=== PATIENT | female | born 1965 | race Caucasian/White ===

== ENCOUNTER → 2024-09-19 09:00 | Outpatient (BNV) | payer OTHER, SELFPAY | PROVIDERS: Visit Provider Internal Medicine Cardiovascular Disease | DX: I49.3 Ventricular premature depolarization (principal) | CPT/HCPCS: 93244 ==

== ENCOUNTER → 2024-09-19 15:51 | Outpatient (REF) | payer OTHER, SELFPAY ==
--- OUTSIDE RECORDS SUMMARY | 2024-09-19 17:38 | XMS_ITS | Encounter Summary ---
Author Organization [facility] [place] [address] Care Team Providers Care Linux Vmware Administrator Name Role Phone Heydi Garcia APRN Primary Care Provider +1- [phone] Encounter Details Date Type Department Care Team (Late Contact Info) Description 09/13/2024 8:29 AM EST - 09/13/2024 11:59 PM EST Hospital Encounter Mammography at [address] [phone] Chely Manzanares MD [address] [address] Encounter for screening mammogram for malignant neoplasm of breast Discharge Disposition: Home Social History Tobacco Use Types Packs/Day Years Used Date Smoking Tobacco: Never Assessed Sex and Gender Information Value Date Recorded Sex Assigned at Not on file Gender Identity Not on file Sexual Orientation Not on file documented as of this encounter Plan of Treatment Upcoming Encounters Date Type Department Care Team ([facility] Contact Info) Description 12/07/2024 3:25 PM EDT Office Visit Primary Care at [address] [phone] Heydi Garcia APRN [address] [place] [address] Pending Results Name Type Priority Associated Diagnoses Date /Time Mammo Screening Cad and Gregg Left Imaging Routine Encounter for screening mammogram for malignant neoplasm of breast 09/13/2024 8:30 AM EST Scheduled Orders Name Type Priority Associated Diagnoses Orde r Schedule Mammo Screening Cad and Gregg Left Imaging Routine Encounter for screening mammogram for malignant neoplasm of breast 1 Occurrences starting 09/13/2024 until 09/13/2024 documented as of this encounter Visit Diagnoses Diagnosis Encounter for screening mammogram for malignant neoplasm of breast Other screening mammogram documented in this encounter Care Teams Linux Vmware Administrator Relationship Specialty Start Date End Date Heydi Garcia APRN [address] [place] [address] PCP - General Family Medicine 08/07/24 documented as of this encounter
--- OUTSIDE RECORDS SUMMARY | 2024-09-19 17:38 | XMS_ITS | Encounter Summary ---
Author Organization [facility] [place] [address] Care Team Providers Care Space Studies Faculty Member Name Role Phone Heydi Garcia APRN Primary Care Provider +1- [phone] Encounter Details Date Type Department Care Team (Latest Contact Info) Description 09/13/2024 Travel Social History Tobacco Use Types Packs/Day Years Used Date Smoking Tobacco: Never Assessed Sex and Gender Information Value Date Recorded Sex Assigned at Not on file Gender Identity Not on file Sexual Orientation Not on file documented as of this encounter Plan of Treatment Upcoming Encounters Date Type Department Care Team (Late st Contact Info) Description 12/07/2024 3:25 PM EDT Office Visit Primary Care at [address] [phone] Heydi Garcia APRN [address] [place] [address] documented as of this encounter Visit Diagnoses Not on filedocumented in this encounter Care Teams Space Studies Faculty Member Relationship Specialty Start Date End Date Heydi Garcia APRN [address] [place] [address] [phone] PCP - General Family Medicine 08/07/24 documented as of this encounter
--- OUTSIDE RECORDS SUMMARY | 2024-09-19 17:38 | XMS_ITS | Clinical Summary ---
Author Organization [facility] [place] [address] Care Team Providers Care Inventory Controller Name Role Phone Heydi Garcia APRN Primary Care Provider +1- [phone] Encounters Date Type Department Care Team Description 09/13/2024 8:29 AM EST - 09/13/2024 11:59 PM EST Hospital Encounter Mammography at [address] [phone] Chely Manzanares MD Encounter for screening mammogram for malignant neoplasm of breast Discharge Disposition: Home 09/13/2024 Transcribe Orders Cardiology at [address] [phone] Chely Manzanares MD Cardiac arrhythmia, unspecified cardiac arrhythmia type 09/13/2024 Travel 08/09/2024 Transcribe Orders eDH Incoming Referrals [phone] Larissa Drake APRN PVC (premature ventricular contraction) 08/08/2024 Transcribe Orders eDH Incoming Referrals [phone] Lisa Martinez PVC's (premature ventricular contractions) from Last 3 Months Social History Tobacco Use Types Packs/Day Years Used Date Smoking Tobacco: Never Assessed Sex and Gender Information Value Date Recorded Sex Assigned at Not on file Gender Identity Not on file Sexual Orientation Not on file Plan of Treatment Upcoming Encounters Date Type Department Care Team ([facility] st Contact Info) Description 12/07/2024 3:25 PM EDT Office Visit Primary Care at [address] [phone] Heydi Garcia APRN [address] [place] [address] Health Maintenance Due Date Last Done Comments CT Colonography 1965 Colonoscopy 1965 Colorectal Cancer Screening 1965 FIT DNA 1965 FIT 1965 Sigmoidoscopy (10 year) with FIT yearly 1965 Sigmoidoscopy 1965 HIV screen 01/01/1984 Hepatitis C Screening 01/01/1984 Hepatitis B vaccine (0-59 yrs) (1) 1984 Tetanus/Diphtheria/Pertussis Vaccines (1 - Tdap) 12/31 HPV test 01/01/1996 PAP Smear 01/01/1996 Breast Cancer Share Decision Needed 2005 Breast Cancer screening 2005 Pneumoccocal Vaccine: 50+ (1 of 1 - PCV) 01/01/2016 Zoster vaccine (1 of 2) 01/01/2016 Advance Directive 2020 Influenza (Flu) vaccine (1 o f 1 - Influenza standard series) 04/22/2024 Covid-19 Vaccine Completed 06/15/2024 Care Teams Inventory Controller Relationship Specialty Start Date End Date Heydi Garcia APRN [address] [place] [address] PCP - General Family Medicine 08/07/24
--- OUTSIDE RECORDS SUMMARY | 2024-09-19 17:38 | XMS_ITS | Encounter Summary ---
Author Organization [facility] [place] [address] Care Team Providers Care Dancing Master Name Role Phone Heydi Garcia APRN Primary Care Provider +1- [phone] Reason for Referral * Consultation (Routine) - Closed Specialty Diagnoses / Procedures Referred By Contac t Referred To Contact Cardiology Diagnoses Cardiac arrhythmia, unspecified cardiac arrhythmia type Chely Manzanares MD [address] [address] [facility] [address] [place] [phone] Referral ID Status Reason Start Date Expiration Date V isits Requested Visits Authorized [id number] Closed Consult, Test & Treat 09/13/2024 09/13/2025 1 1 Encounter Details Date Type Department Care Team (Late st Contact Info) Description 09/13/2024 Transcribe Orders Cardiology at [address] [phone] Chely Manzanares MD [address] [address] Cardiac arrhythmia, unspecified cardiac arrhythmia type Social History Tobacco Use Types Packs/Day Years [...] PM EDT Office Visit Primary Care at [place] [address] [place] [phone] Heydi Garcia APRN [address] [place] [address] Scheduled Referrals Name Type Priority Associated Diagnoses Orde r Schedule Referral to Cardiology Outpatient Referral Routine Cardiac arrhythmia, unspecified cardiac arrhythmia type Ordered: 09/13/2024 documented as of this encounter Visit Diagnoses Diagnosis Cardiac arrhythmia, unspecified cardiac arrhythmia type documented in this encounter Care Teams Dancing Master Relationship Specialty Start Date End Date Heydi Garcia APRN [address] [place] [address] PCP - General Family Medicine 08/07/24 documented as of this encounter
== END ==
LOC: HO.CARD 15:51
PROVIDERS: Visit Provider Family Medicine
DX: I49.3 Ventricular premature depolarization (principal)
CPT/HCPCS: 93005; 93242

== ENCOUNTER 2024-10-05 08:06 | Outpatient (AMB) | payer OTHER, SELFPAY ==
--- NOTE | 2024-10-05 08:09 | A.OFFVIS_ITS ---
Vital Signs 10/05/24 08:23 Height 5 ft 4 in Weight 149 lb 14.629 oz BMI 25.7 BP 110/70 Blood Pressure Location Lt brachial Position Sitting Pulse 68 Intake Visit Reasons: new patient abnormal holter Intake Note: New patient abnormal holter results with ekg c/o racing and palpitations Wind Turbine Installer Required: No Allergies No Known Allergies Allergy (Verified 10/05/24 08:25) Medication List - Last Reconciled 10/05/24 by Cliff Wang MD No Known Home Meds HPI Comments Details: Thank you for referring Lindsay in cardiology consultation today for management of cardiac arrhythmias. She is a pleasant 58-year-old woman who is extremely active. She does cross-country screening as well as hiking on a regular basis. She has not had any recent significant exertional symptoms of chest pain or shortness of breath. However couple months ago she was having oral surgery was told at that time that she was having PVCs. It took her some time to get a Holter monitor requested and done which showed frequent PVCs with a burden of about 15% with some runs of nonsustained ventricular tachycardia which led to this consultation today. Patient says after being told that she was PVC she has been noticing some fluttering in his chest although she is not very symptomatic with it. She denies any life limitations related to it. She was a little anxious. She says last year and half has been stressful given multiple issues in his personal life. However currently she has been feeling okay. She is currently not on any medications. She has never had any prior significant cardiovascular issues and denies any prior history of hypertension, diabetes, hyperlipidemia. She has no family history of cardiac arrhythmias or sudden cardiac that. FORMERLY [facility], [facility]–1983 Surgical History Hx of oral surgery Hx of knee surgery Family History Father Cancer Mother No problems noted. Review of Systems Const Denies chills, Denies daytime sleepiness, Denies fatigue, Denies fever(s), Denies frequent falls, Denies poor appetite, Denies snoring, Denies stops breathing during sleep, Denies weakness, Denies weight gain and Denies weight loss Eyes Denies loss of vision ENT Denies dizziness and Denies hearing loss Card Denies chest pain, Denies claudication, Denies leg edema, Denies lig htheadedness, Reports palpitations, Denies dyspnea, Denies dyspnea on exertion and Denies orthopnea Resp Denies cough, Denies excessive phlegm production, Denies dyspnea, Denies dyspnea on exertion, Denies snoring and Denies wheezing GI Denies abdominal pain, Denies hematochezia, Denies change in bowel habits, Denies nausea and Denies vomiting Denies urinary frequency and Denies dysuria Musc Denies arthralgias, Denies muscle weakness, Denies numbness and Denies other (frequent falls) Skin/Breast Denies nail changes and Denies rash Neuro Denies Abnormal speech present, Denies dizziness, Denies frequent falls, Denies loss of vision, Denies memory loss, Denies numbness and Denies weakness Psych Denies depression and Denies memory loss Endo Denies fatigue and Reports palpitations Rubin/Lymph Reports easy bruising and Reports other (anemia) Aller/Immun Denies wheezing Physical Exam Vital Signs: Last Vital Signs Pulse 68 10/05/24 08:23 BP 110/70 10/05/24 08:23 BMI result Body Mass Index 25.7 Const General: cooperative, comfortable, no acute distress, well developed, alert, awake, Physically active and well groomed Nutritional Appearance: average body habitus and well nourished Orientation/consciousness: patient oriented x3 Limitations: no limitations HEENT Head: Yes normocephalic and Yes atraumatic Neck Neck: Yes trachea midline, Yes supple and Yes no JVD Resp Effort & Inspection: normal respiratory effort Auscultation: clear to auscultation bilaterally Cardio Jugular venous distension: no JVD Palpation: normal PMI Rate: regular rate Rhythm: regular rhythm Heart sounds: S1 normal heart sound present, S2 normal heart sound present, no click, no gallops, no murmurs and no rubs GI Auscultation: normal bowel sounds Skin General skin exam: no rashes or lesions noted Neuro General: patient oriented x3 and no focal motor deficits Speech: No Abnormal speech present Extrem General: Yes no clubbing, cyanosis or edema Psych Appearance: grossly normal Office Procedures EKG Details: EKG shows normal sinus rhythm with occasional PVCs with possible left atrial enlargement otherwise no evidence of QT prolongation pre-excitation. 46496-[id number], Complete Assessment & Plan Assessment & Plan (1) PVC (premature ventricular contraction): Code(s): I49.3 - Ventricular premature depolarization Category: Medical Plan: Frequent PVCs including nonsustained ventricular tachycardia in this middle-aged woman without any obvious signs of cardiac disease or cardiovascular risk factors. She is in excellent cardiovascular shape as well and is very active. She does feel symptoms of fluttering but these are not life-limiting at this point time. I have discussed about pathophysiology of PVCs and management plan. Need to rule out underlying structural heart issues and will suggest her to have an echocardiogram as well as exercise stress test to rule out cardiomyo kristina process well as any other structural abnormality as well as myocardial ischemia. Given the frequency of PVCs discussed that this can potentially lead to cardiomyopathy process and will treat her with Toprol 50 mg daily. Follow-up Holter monitor in couple weeks to assess response. If there any significant structural heart issues will need to be addressed if not and she continues to have persistent frequent PVCs will need further cardiac imaging including cardiac MRI. This was discussed with her. Management of PVCs were discussed. We discussed about avoiding stimulants and also stress mitigation strategies. She understands and agrees. Follow up in the clinic in 4-6 weeks time after testing and see response to medical therapy. Thank you for allowing me to partake in his care Orders: Orders CA echo transthoracic complete Today I49.3 - Ventricular premature depolariz ation ECG 3 day holter monitor 4 Weeks I49.3 - Ventricular premature depolarization CA stress test Today I49.3 - Ventricular premature depolarization Medications: New metoprolol succinate ER (Toprol XL) 50 mg PO DAILY 30 tabs 5RF Coding Level of Care Code New Pt Level 4 (77812) Complex EM visit Add On G2211 Diagnoses PVC (premature ventricular contraction) I49.3 CPT Codes EKG - CPT: 87903-Zyvhujerexrgfbcpd, Complete ([id number])
--- OUTSIDE RECORDS SUMMARY | 2024-10-05 08:09 | XMS_ITS | Clinical Summary ---
Author Organization [facility] [place] [address] Care Team Providers Care University Relations Vice President Name Role Phone Heydi Garcia APRN Primary Care Provider +1- [phone] Encounters Date Type Department Care Team Description 09/21/2024 Abstract Primary Care at [address] [phone] Heydi Garcia APRN 09/20/2024 Telephone Primary Care at [address] [phone] Tray Rodriges [facility] Care 09/13/2024 8:29 AM EST - 09/13/2024 11:59 PM [facility] Hospital Encounter Mammography at [address] [phone] Chely Manzanares MD Encounter for screening mammogram for malignant neoplasm of breast Discharge Disposition: Home 09/13/2024 Transcribe Orders Cardiology at [address] [phone] Chely Manzanares MD Cardiac arrhythmia, unspecified cardiac arrhythmia type 09/13/2024 Travel 08/09/2024 Transcribe Orders eDH Incoming Referrals [phone] Larissa Darke APRN PVC (premature ventricular contraction) 08/08/2024 Transcribe Orders eDH Incoming Referrals [phone] Lisa Martinez PVC's (premature ventricular contractions) from Last 3 Months Immunizations Name Administration Dates Next Due Covid-19 Bivalent (Moderna S pikevax) 6mo+ (Age based Dosage) (4870-4442) 05/28/2022 Hepatitis B Pediatric/Adoles cant (Engerix-B, Recombivax) 12/13/2022,11/15/2022 Tdap (Adacel, Boostrix) 07/02/2021 Social History Tobacco Use Types Packs/Day Years Used Date Smoking Tobacco: Never Assessed Sex and Gender Information Value Date Recorded Sex Assigned at Not on file Gender Identity Not on file Sexual Orientation Not on file Plan of Treatment Upcoming Encounters Date Type Department Care Team ([facility] Contact Info) Description 12/07/2024 3:25 PM EDT Office Visit Primary Care at [address] [phone] Heydi Garcia, CHERIE [address] [place] [address] MEDICINE [place], [place] [phone] Health Maintenance Due Date Last Done Comments CT Colonography 1965 Colonoscopy 1965 Colorectal Cancer Screening 1965 FIT DNA 1965 FIT 1965 Sigmoidoscopy (10 year) with FIT yearly 1965 Sigmoidoscopy 1965 Hepatitis C Screening 01/01/1984 HPV test 01/01/1996 Breast Cancer Share Decision Needed 2005 Pneumoccocal Vaccine: 50+ (1 of 1 - PCV) 01/01/2016 Zoster vaccine (1 of 2) 01/01/2016 Advance Directive 2020 Hepatitis B vaccine (0-59 yrs) (3) 05/18/20232022, 11/15/2022 Influenza (Flu) vaccine (1 o f 1 - Influenza standard series) 04/22/2024 Breast Cancer screening 09/13/2026 09/13/2024 PAP Smear 01/29/2028 01/28/2023, 06/0 08/2021, 01/09/2021 Tetanus/Diphtheria/Pertussis Vaccines (2 - Td or Tdap) 07/02/2031 07/02/2021 HIV screen Completed 09/27/2008 Covid-19 Vaccine Completed 06/15/2024, 05/28/2022 Procedures Procedure Name Priority Date/Time Associated Diagnosis Comments MAMMO SCREENING CAD AND GREGG LEFT Routine 09/13/2024 8:40 AM EST Encounter for screening mammogram for malignant neoplasm of breast EXTERNAL PAP SMEAR RESULT PANEL Routine 01/28/2023 EXTERNAL INFECTIOUS DISEASE LAB RESULTS Routine 09/27/2008 from Last 3 Months or Most Recently Relevant to Health Maintenance Results * Mammo Screening Cad and Gregg Left (09/13/2024 8:40 AM EST) WORKSTATION ID [id number] RAD Anatomical Region Laterality Modality Breast Left Mammography Impressions 09/21/2024 3:33 PM EST No mammographic evidence of malignancy. RECOMMENDATION: Recommend routine annual screening. A result letter has been sent to this patient by [facility]. BI-RADS Category 2: Benign * Regular screening mammograms starting at age 40 reduces the risk of from breast cancer. * All screening tests have both risks and benefits. These risks and benefits should be assessed for each individual patient through discussion with their provider to determine their preferred breast cancer screening schedule. * Women should report any breast changes to a health care provider right away. * Some women, because of their family history, a genetic tendency, or other factors, should be screened with annual breast MRI as well as with mammograms. (The number of women who fall into this category is very small). Patients and health care providers should discuss the history of each patient to decide if earlier screening and/or breast MRI are appropriate. * Screening should continue as long as a woman is in good health and is expected to live 10 years or longer. * Screening mammography may not detect 10-15% of breast cancers. Thank you for letting us participate in the care of this patient. ??If you are a health care provider and have any questions regarding this report, please contact the number below. ??For patients who have questions please contact the health emergency care tech that requested your imaging first. ? Electronically signed by: JB LEACH MD, [facility] ([phone]), at 09/21/2024 3:[address], [place] ??[address] Narrative 09/21/2024 3:33 PM EST EXAMINATION: MAMMO SCREENING CAD AND GREGG LEFT CLINICAL HISTORY: Diagnostic mammogram. TECHNIQUE: CC and MLO views were obtained of left breast. 3- D tomosynthesis images were also obtained. Computer aided detection was used. Additional views of the left ??breast were obtained utilizing spot compression and/or spot magnification in orthogonal projections. COMPARISON: 07/15/2023 and 07/13/2022 FINDINGS: The breasts are heterogeneously dense, which may obscure small masses. There are no suspicious microcalcifications, masses, or areas of distortion. There is no suspicious change compared with prior images. Chely Manzanares MD IMG MAMMO ORDERABLES * Pap Smear External Result Panel (01/28/2023) External PAP Smear NILM 01/28/2023 Historical Provider EXTERNAL LAB HEMA DEJESUS * External Infectious Disease Lab Results (09/27/2008) Hep B Surface Ag - External NEGATIVE HIV-1/2 Ab /Ag - External NON-REACTIVE 09/27/2008 Historical Provider EXTERNAL LAB HEMA DEJESUS from Last 3 Months or Most Recently Relevant to Health Maintenance Care Teams University Relations Vice President Relationship Specialty Start Date End Date Heydi Garcia APRN [address] [place] [address] PCP - General Family Medicine 08/07/24
--- OUTSIDE RECORDS SUMMARY | 2024-10-05 08:09 | XMS_ITS | Encounter Summary ---
Author Organization [facility] [place] [address] Care Team Providers Care Copier Operator Name Role Phone Heydi Garcia APRN Primary Care Provider +1- [phone] Encounter Details Date Type Department Care Team [...] PM EDT Office Visit Primary Care at [address] [phone] Heydi Garcia APRN [address] [place] [address] documented as of this encounter Visit Diagnoses Not on filedocumented in this encounter Care Teams Copier Operator Relationship Specialty Start Date End Date Heydi Garcia APRN [address] [place] [id number] PCP - General Family Medicine 08/07/24 documented as of this encounter
--- OUTSIDE RECORDS SUMMARY | 2024-10-05 08:09 | XMS_ITS | Encounter Summary ---
Author Organization [facility] [place] [address] Care Team Providers Care Floor Scraper Name Role Phone Heydi Garcia APRN Primary Care Provider +1- [phone] Encounter Details Date Type Department Care Team (Late st Contact Info) Description 09/21/2024 Abstract Primary Care at [address] [phone] Heydi Garcia APRN [address] [place] [address] Social History Tobacco Use Types Packs/Day Years [...] PM EDT Office Visit Primary Care at [address] [phone] Heydi Garcia APRN [address] [place] [address] documented as of this encounter Procedures Procedure Name Priority Date/Time Associated Diagnosis Comments EXTERNAL PAP SMEAR RESULT PANEL Routine 01/28/2023 EXTERNAL PAP SMEAR RESULT PANEL Routine 01/20/2022 EXTERNAL PAP SMEAR RESULT PANEL Routine 01/09/2021 EXTERNAL INFECTIOUS DISEASE LAB RESULTS Routine 09/27/2008 documented in this encounter Results * Pap Smear External Result Panel (01/28/2023) External PAP Smear NILM 01/28/2023 Historical Provider EXTERNAL LAB ORDMaria E DEJESUS * Pap Smear External Result Panel (01/20/2022) External PAP Smear NILM 01/20/2022 Historical Provider EXTERNAL LAB HEMA DEJESUS * Pap Smear External Result Panel (01/09/2021) External PAP Smear NILM 01/09/2021 Historical Provider EXTERNAL LAB HEMA DEJESUS * External Infectious Disease Lab Results (09/27/2008) Hep B Surface Ag - External NEGATIVE HIV-1/2 Ab /Ag - External NON-REACTIVE 09/27/2008 Historical Provider MD MARTHA DEJESUS documented in this encounter Visit Diagnoses Not on filedocumented in this encounter Care Teams Floor Scraper Relationship Specialty Start Date End Date Heydi Garcia APRN [address] [place] [address] PCP - General Family Medicine 08/07/24 documented as of this encounter
--- OUTSIDE RECORDS SUMMARY | 2024-10-05 08:09 | XMS_ITS | Encounter Summary ---
Author Organization [facility] [place] [address] Care Team Providers Care Oracle Ebs Developer Name Role Phone Heydi Garcia APRN Primary Care Provider +1- [phone] Reason for Visit * Reason Onset Date Comments Establish Care 09/20/2024 Encounter Details Date Type Department Care Team (Late st Contact Info) Description 09/20/2024 Telephone Primary Care at [address] [phone] Tray Rodriges Establish Care Social History Tobacco Use Types Packs/Day Years Used Date Smoking Tobacco: Never Assessed Sex and Gender Information Value Date Recorded Sex Assigned at Not on file Gender Identity Not on file Sexual Orientation Not on file documented as of this encounter Miscellaneous Notes * Telephone Encounter - Gisela Ya - 09/21/2024 8:19 AM EST DUE FOR ALL GAPS * Telephone Encounter - Tray Rodriges - 09/20/2024 12:20 PM EST Records have been received NPV has been scheduled documented in this encounter Plan of Treatment Upcoming Encounters Date Type Department Care Team (Late st Contact Info) Description 12/07/2024 3:25 PM EDT Office Visit Primary Care at [address] [phone] Heydi Garcia APRN [address] [place] [address] documented as of this encounter Visit Diagnoses Not on filedocumented in this encounter Care Teams Oracle Ebs Developer Relationship Specialty Start Date End Date Heydi Garcia APRN [address] [place] [address] PCP - General Family Medicine 08/07/24 documented as of this encounter
--- OUTSIDE RECORDS SUMMARY | 2024-10-05 08:09 | XMS_ITS | Encounter Summary ---
Author Organization [facility] [place] [address] Care Team Providers Care Label Pinker Name Role Phone Heydi Garcia APRN Primary Care Provider +1- [phone] Reason for Referral * Consultation (Routine) - Closed Specialty Diagnoses / Procedures Referred By Contac t Referred To Contact Cardiology Diagnoses Cardiac arrhythmia, unspecified cardiac arrhythmia type Chely Manzanares MD [address] [address] [facility] Cardiology [address] [place] [phone] Referral ID Status Reason Start Date Expiration Date V isits Requested Visits Authorized [id number] Closed Consult, Test & Treat 09/13/2024 09/13/2025 1 1 Encounter Details Date Type Department Care Team (Late st Contact Info) Description 09/13/2024 Transcribe Orders Cardiology at [address] [phone] Chely Manzanares MD [address] [address] Cardiac arrhythmia, unspecified cardiac arrhythmia type Social [...] PM EDT Office Visit Primary Care at [place] [address] [place] [phone] Heydi Garcia APRN [address] [place] [address] Scheduled Referrals Name Type Priority Associated Diagnoses Orde r Schedule Referral to Cardiology Outpatient Referral Routine Cardiac arrhythmia, unspecified cardiac arrhythmia type Ordered: 09/13/2024 documented as of this encounter Visit Diagnoses Diagnosis Cardiac arrhythmia, unspecified cardiac arrhythmia type documented in this encounter Care Teams Label Pinker Relationship Specialty Start Date End Date Heydi Garcia APRN [address] [place] [id number] PCP - General Family Medicine 08/07/24 documented as of this encounter
--- OUTSIDE RECORDS SUMMARY | 2024-10-05 08:09 | XMS_ITS | Encounter Summary ---
Author Organization [facility] [place] [address] Care Team Providers Care Lead Handler Name Role Phone Heydi Garcia APRN Primary Care Provider +1- [phone] Encounter Details Date Type Department Care Team (Late Contact Info) Description 09/13/2024 8:29 AM EST - 09/13/2024 11:59 PM EST Hospital Encounter Mammography at [address] [phone] Chely Manzanares MD [address] [address] Encounter for screening mammogram for malignant neoplasm [...] Encounters Date Type Department Care Team (Late Contact Info) Description 12/07/2024 3:25 PM EDT Office Visit Primary Care at [address] [phone] Heydi Garcia APRN [address] [place] [address] documented as of this encounter Procedures Procedure Name Priority Date/Time Associated Diagnosis Comments MAMMO SCREENING CAD AND GREGG LEFT Routine 09/13/2024 8:40 AM EST Encounter for screening mammogram for malignant neoplasm of breast documented in this encounter Results * Mammo Screening Cad and Gregg Left (09/13/2024 8:40 AM EST) WORKSTATION ID [id number] RAD Anatomical Region Laterality Modality Breast Left [...] who have questions please contact the health resident care technician that requested your imaging first. ? [address] ??[address] Narrative 09/21/2024 3:33 PM EST EXAMINATION: MAMMO [...] images. Chely Manzanares MD IMG MAMMO ORDERABLES documented in this encounter Visit Diagnoses Diagnosis Encounter for screening mammogram for malignant neoplasm of breast Other screening mammogram documented in this encounter Care Teams Lead Handler Relationship Specialty Start Date End Date Heydi Garcia APRN [address] [place] [id number] PCP - General Family Medicine 08/07/24 documented as of this encounter
[2024-10-05 08:23] VITALS: BP 110/70; PULSE 68; BMI 25.7
== END 2024-10-05 08:47 | disposition home or self-care (01) ==
PROVIDERS: PCP Family Medicine; Visit Provider Internal Medicine Cardiovascular Disease
DX: I49.3 Ventricular premature depolarization (principal)
CPT/HCPCS: 93010; 99214

== ENCOUNTER → 2024-10-05 08:06 | Outpatient (BNVA) | payer OTHER, SELFPAY | PROVIDERS: Visit Provider Internal Medicine Cardiovascular Disease | DX: I49.3 Ventricular premature depolarization (principal) | CPT/HCPCS: 93005 ==

== ENCOUNTER → 2024-10-11 09:27 | Outpatient (REF) | payer OTHER, SELFPAY ==
--- NOTE | 2024-10-11 09:34 | CA_ITS ---
Acquisition Time: 2024-10-11 09:39:38 Total Exercise Time: 00:06:22 Test Indications: ABN HOLTER Medications: SEE H&P Protocol: JB Max HR: 142 BPM 87% of Pred: 162 BPM Max BP: 170/80 mmHG Max Work Load: 7.5 METS Exercise Stress Tets with exercise 6 mins 22 secs of Jb Protocol, achieving 85% MPHR, with reports of mild dizziness that resolved quickly in recovery, with frequent isolated PVCs more during resting, frequent ventricular couplets in the first 3 min of recovery- no symptoms, with normotensive response to exercise. With borderline EKG changes inferiroly and in V4-V6. ST segments improved gradually. Will order stress echo to further evaluate this. Test reviewed with Dr. Wang. Referred By: Cliff Wang Electronically Signed By: Shree Hsu
--- OUTSIDE RECORDS SUMMARY | 2024-10-11 10:15 | XMS_ITS | Encounter Summary ---
Author Organization [facility] [place] [address] Care Team Providers Care Copying Machine Mechanic Name Role Phone Heydi Garcia APRN Primary Care Provider +1- [phone] Reason for Referral * Consultation (Routine) - Closed Specialty Diagnoses / Procedures Referred By Contac t Referred To Contact Cardiology Diagnoses Cardiac arrhythmia, unspecified cardiac arrhythmia type Chely Manzanares MD [address] [address] [facility] [address] [place] [phone] Referral ID Status Reason Start Date Expiration Date V isits Requested Visits Authorized [id number] Closed Consult, Test & Treat 09/13/2024 09/13/2025 1 1 Encounter Details Date Type Department Care Team (Late st Contact Info) Description 09/13/2024 Transcribe Orders Cardiology at [address] [phone] Chely Manzanares MD [address] [address] Cardiac arrhythmia, unspecified cardiac arrhythmia type Social [...] PM EDT Office Visit Primary Care at [place] [address] [place] [phone] Heydi Garcia APRN [address] [place] [address] Scheduled Referrals Name Type Priority Associated Diagnoses Orde r Schedule Referral to Cardiology Outpatient Referral Routine Cardiac arrhythmia, unspecified cardiac arrhythmia type Ordered: 09/13/2024 documented as of this encounter Visit Diagnoses Diagnosis Cardiac arrhythmia, unspecified cardiac arrhythmia type documented in this encounter Care Teams Copying Machine Mechanic Relationship Specialty Start Date End Date Heydi Garcia APRN [address] [place] [address] PCP - General Family Medicine 08/07/24 documented as of this encounter
--- OUTSIDE RECORDS SUMMARY | 2024-10-11 10:15 | XMS_ITS | Encounter Summary ---
Author Organization [facility] [place] [address] Care Team Providers Care Aix Administrator Name Role Phone Heydi Garcia APRN Primary Care Provider +1- [phone] Encounter Details Date Type Department Care Team (Late st Contact Info) Description 09/21/2024 Abstract Primary Care at [address] [phone] Heydi Garcia APRN [address] [place] [address] Social History Tobacco Use Types [...] PM EDT Office Visit Primary Care at [address] [phone] Heydi Garcia APRN [address] [place] [address] documented as of this encounter [...] on filedocumented in this encounter Care Teams Aix Administrator Relationship Specialty Start Date End Date Heydi Garcia APRN [address] [place] [id number] PCP - General Family Medicine 08/07/24 documented as of this encounter
--- OUTSIDE RECORDS SUMMARY | 2024-10-11 10:15 | XMS_ITS | Encounter Summary ---
Author Organization [facility] [place] [address] Care Team Providers Care Smoking Tobacco Cutter Operator Name Role Phone Heydi Garcia APRN Primary Care Provider +1- [phone] Reason for Visit * Reason Onset Date Comments Establish Care 09/20/2024 Encounter Details Date Type Department Care Team (Late st Contact Info) Description 09/20/2024 Telephone Primary Care at [address] [phone] Tray Rodriges Establish Care Social [...] PM EDT Office Visit Primary Care at [address] [phone] Heydi Garcia APRN [address] [place] [address] documented as of this encounter Visit Diagnoses Not on filedocumented in this encounter Care Teams Smoking Tobacco Cutter Operator Relationship Specialty Start Date End Date Heydi Garcia APRN [address] [place] [address] PCP - General Family Medicine 08/07/24 documented as of this encounter
--- OUTSIDE RECORDS SUMMARY | 2024-10-11 10:15 | XMS_ITS | Encounter Summary ---
Author Organization [facility] [place] [address] Care Team Providers Care Coremaker Supervisor Name Role Phone Heydi Garcia APRN Primary Care Provider +1- [phone] Encounter Details Date Type Department Care Team (Late Contact Info) Description 09/13/2024 8:29 AM EST - 09/13/2024 11:59 PM EST Hospital Encounter Mammography at [address] [phone] Chely Manzanares MD [address] [address] Encounter for screening mammogram for malignant neoplasm [...] PM EDT Office Visit Primary Care at [address] [phone] Heydi Garcia APRN [address] [place] [address] documented as of this encounter Procedures Procedure Name Priority Date/Time Associated Diagnosis Comments MAMMO SCREENING CAD AND GREGG LEFT Routine 09/13/2024 8:40 AM EST Encounter for screening mammogram for malignant neoplasm of breast documented in this encounter Results * Mammo Screening Cad and Gregg Left (09/13/2024 8:40 AM EST) WORKSTATION ID [id number] RAD Anatomical Region Laterality Modality Breast Left [...] who have questions please contact the health manager primary care that requested your imaging first. ? Electronically signed by: JB LEACH MD, [facility] ([phone]), at 09/21/2024 3:[address] ??[address] Narrative 09/21/2024 3:33 PM EST EXAMINATION: MAMMO [...] mammogram documented in this encounter Care Teams Coremaker Supervisor Relationship Specialty Start Date End Date Heydi Garcia APRN [address] [place] [id number] PCP - General Family Medicine 08/07/24 documented as of this encounter
--- OUTSIDE RECORDS SUMMARY | 2024-10-11 10:15 | XMS_ITS | Encounter Summary ---
Author Organization [facility] [place] [address] Care Team Providers Care Cotton Seed Culler Name Role Phone Heydi Garcia APRN Primary Care Provider +1- [phone] Encounter Details Date Type Department Care Team [...] PM EDT Office Visit Primary Care at [address] [phone] Heydi Garcia APRN [address] [place] [address] documented as of this encounter Visit Diagnoses Not on filedocumented in this encounter Care Teams Cotton Seed Culler Relationship Specialty Start Date End Date Heydi Garcia APRN [address] [place] [address] PCP - General Family Medicine 08/07/24 documented as of this encounter
--- OUTSIDE RECORDS SUMMARY | 2024-10-11 10:15 | XMS_ITS | Clinical Summary ---
Author Organization [facility] [place] [address] Care Team Providers Care Solar Sales Name Role Phone Heydi Garcia APRN Primary Care Provider +1- [phone] Encounters Date Type Department Care Team Description 09/21/2024 Abstract Primary Care at [address] [phone] Heydi Garcia APRN 09/20/2024 Telephone Primary Care at [address] [phone] Tray Rodriges [facility] Care 09/13/2024 8:29 AM EST - 09/13/2024 11:59 PM [facility] Hospital Encounter Mammography at [address] [phone] Chely Manzanares MD Encounter for screening mammogram for malignant neoplasm of breast Discharge Disposition: Home 09/13/2024 Transcribe Orders Cardiology at [address] [phone] Chely Manzanares MD Cardiac arrhythmia, unspecified cardiac arrhythmia type 09/13/2024 Travel 08/09/2024 Transcribe Orders eDH Incoming Referrals [phone] Larissa Drake APRN PVC (premature ventricular contraction) 08/08/2024 Transcribe Orders eDH Incoming Referrals [phone] Lisa Martinez PVC's (premature ventricular contractions) from Last 3 Months Immunizations Name Administration Dates Next Due Covid-19 Bivalent (Moderna S pikevax) 6mo+ (Age based Dosage) ([id number]) 05/28/2022 Hepatitis B Pediatric/Adoles cant (Engerix-B, Recombivax) 12/13/2022,11/15/2022 Tdap (Adacel, Boostrix) 07/02/2021 Social History Tobacco Use Types Packs/Day Years Used Date Smoking Tobacco: Never Assessed Sex and Gender Information Value Date Recorded Sex Assigned at Not on file Gender Identity Not on file Sexual Orientation Not on file Plan of Treatment Upcoming Encounters Date Type Department Care Team ([facility] Contact Info) Description 12/07/2024 3:25 PM EDT Office Visit Primary Care at [address] [phone] Heydi Garcia, CHERIE [address] [place] [address] [place]IC[place], [place] [id number] Health Maintenance Due Date Last Done Comments [...] Left (09/13/2024 8:40 AM EST) WORKSTATION ID [id number] RAD Anatomical Region Laterality Modality Breast Left [...] who have questions please contact the health career and transition teacher that requested your imaging first. ? Electronically signed by: JB LEACH MD, [facility] ([phone]), at 09/21/2024 3:[address], [place] ??[address] Narrative 09/21/2024 3:33 PM EST EXAMINATION: MAMMO [...] Recently Relevant to Health Maintenance Care Teams Solar Sales Relationship Specialty Start Date End Date Heydi Garcia APRN [address] [place] [id number] PCP - General Family Medicine 08/07/24
== END ==
LOC: HO.CARD 09:27
PROVIDERS: PCP Family Medicine; Visit Provider Internal Medicine Cardiovascular Disease
DX: I49.3 Ventricular premature depolarization (principal)
CPT/HCPCS: 93017

== ENCOUNTER → 2024-10-11 09:34 | Outpatient (BNV) | payer OTHER, SELFPAY | PROVIDERS: PCP Family Medicine | DX: R42 Dizziness and giddiness (principal); I49.3 Ventricular premature depolarization | CPT/HCPCS: 93016; 93018 ==

== ENCOUNTER → 2024-10-22 12:54 | Outpatient (REF) | payer OTHER, SELFPAY ==
--- NOTE | 2024-10-22 12:58 | CA_ITS ---
Transthoracic Echocardiogram Patient (Last, First, Middle): Lindsay Cramer, Gender: Female Date of : 1965 Age: 58 Procedure Date: 10/22/2024 Procedure Type: Transthoracic Echocardiogram Location: OP Height: 162.56 cm Weight: 65.77 kg BSA: 1.71 m2 Heart Rate: 65 bpm BP: 142 / 80 mmHg Weave Defect Charting Clerk: FIFI Referring MD: Cliff Wang MD Project Management Professional: Cliff Wang MD Symptoms: I49.3 - Ventricular premature depolarization Study Quality: Adequate ECG Rhythm: Sinus w/ocasional PVCs Conclusions: - 1. Normal LV ejection fraction of 65-70% 2. Mild aortic regurgitation 3. Mildly dilated ascending aorta at 4.1 cm 4. Mildly dilated left atrium 5. Normal RV systolic pressure 6. No gross pericardial effusion Findings Left Ventricle Normal left ventricular size, thickness, and systolic function. The visually estimated ejection fraction is between 65-70%. Spectral Doppler is indicative of a normal filling pattern. Right Ventricle Normal right ventricular cavity size and systolic function. Atria The left atrium is mildly dilated. There is no evidence of interatrial shunt. The right atrium is likely dilated. Aortic Valve The aortic valve structure and function is likely normal. There is no aortic valve stenosis. There is mild aortic valve regurgitation. Mitral Valve Normal mitral valve structure and function. There is trace mitral valve regurgitation. There is no mitral valve stenosis. Pulmonic Valve The pulmonic valve is likely normal. Tricuspid Valve Normal tricuspid valve structure. There is mild tricuspid valve regurgitation. The right ventricular systolic pressure is normal. The right ventricular systolic pressure is 26 mmHg. Normal right atrial pressure. There is no evidence of pulmonary hypertension. Great Vessels The pulmonary artery was not well visualized. There is mild dilatation of the ascending aorta measuring 4.10 cm. Venous The inferior vena cava is normal in size and collapses greater than 50% with inspiration. Pericardium/Pleural There is no evidence of pericardial effusion. Prior Study Comparison No prior study available for comparison. Measurements 2D Linear Measurements IVSd: 0.84 0.6-0.9/0.6-1.0 cm LVIDd: 4.83 3.9-5.3/4.2-5.9 cm LVIDd Index: 2.82 2.4-3.2/2.2-3.1 cm/m2 LVIDs: 3.01 2.0-3.6 cm LVPWd: 0.84 0.7-1.1 cm LA Diam: 3.70 2.7-3.8/3.0-4.0 cm LAIDs Index: 2.16 1.5-2.3 cm/m2 LV Mass: 170.54 67-162/88-224 g LV Mass Index: 99.73 43-95/49-115 g/m2 LVOT Diam: 2.00 3.0+(-)1.3 cm 2D Systolic Function EF 4C: 64.90 >55% EF 2C: 70.50 >55% EF BiP: 67.60 >55% Mitral Valve MV Pk E: 0.67 MV PK A: 0.69 MV Decel Time: 194.00 E/A: 1.00 E'Lateral: 10.10 E'Medial: 8.49 E/E' Med: 7.90 E/E' Lat: 6.60 PHT: 57.00 MVA PHT: 3.86 Decel [place]: 3.45 Aortic Valve AoV Pk Werner: 1.25 AoV Mn Werner: 1.00 AoV VTI: 0.30 AoV Pk Grad: 6.00 Aov Mn Grad: 4.00 ALMA Cont.VTI: 2.90 LVOT LVOT Pk Werner: 1.18 LVOT Mn Werner: 0.83 LVOT VTI: 0.28 LVOT Pk Grad: 6.00 LVOT Mn Grad: 4.00 LVOT Diam: 2.00 LVOT Area: 3.14 Diastolic Function MV Pk E: 0.67 MV Pk A: 0.69 E/A: 1.00 E'Medial: 8.49 E/E' Med: 7.90 E' Laterial: 10.10 E/E' Lat: 6.60 Right Ventricle TAPSE (mm): 18.30 TVS' Werner: 11.10 Tricuspid Valve TR Pk Werner: 2.39 TR Pk Grad: 23.00 RA Press: 3.00 RVSP: 26.00 Great Vessels Aorta Sinus of Valsalva: 3.60 2.0-3.5 cm Ao Asc: 4.10 2.1-3.4 cm Ao Arch: 2.90 Pulmonary Valve PV Pk Werner: 0.88 Peak PV Grad: 3.00 Updated in Other Vendor System with Status of Final Cliff Wang MD electronically signed on 10/22/2024 6:02:27 PM with status of Final
--- OUTSIDE RECORDS SUMMARY | 2024-10-22 15:07 | XMS_ITS | Clinical Summary ---
Author Organization [facility] [place] [address] Care Team Providers Care Digital Solution Architect Name Role Phone Heydi Garcia APRN Primary Care Provider +1- [phone] Encounters Date Type Department Care Team Description 09/21/2024 Abstract Primary Care at [address] [phone] Heydi Garcia APRN 09/20/2024 Telephone Primary Care at [address] [phone] Tray Rodriges [facility] Care 09/13/2024 8:29 AM EST - 09/13/2024 11:59 PM [facility] Hospital Encounter Mammography at [address] [phone] Chely Manzanares MD Encounter for screening mammogram for malignant neoplasm of breast Discharge Disposition: Home 09/13/2024 Transcribe Orders Cardiology at [address] [phone] Chely Manzanares MD Cardiac arrhythmia, unspecified cardiac arrhythmia type 09/13/2024 Travel 08/09/2024 Transcribe Orders eDH Incoming Referrals [phone] Larissa Drake APRN PVC (premature ventricular contraction) 08/08/2024 Transcribe Orders eDH Incoming Referrals [phone] Lisa Martinez PVC's (premature ventricular contractions) from Last 3 Months Immunizations Name Administration Dates Next Due Covid-19 Bivalent (Moderna S pikevax) 6mo+ (Age based Dosage) ([id number]) 05/28/2022 Hepatitis B Pediatric/Adoles cant (Engerix-B, Recombivax) 12/13/2022,11/15/2022 Tdap (Adacel, Boostrix) 07/02/2021 Social History Tobacco Use Types Packs/Day Years Used Date Smoking Tobacco: Never Assessed Sex and Gender Information Value Date Recorded Sex Assigned at Not on file Gender Identity Not on file Sexual Orientation Not on file Plan of Treatment Upcoming Encounters Date Type Department Care Team ([facility] Contact Info) Description 12/07/2024 3:25 PM EDT Office Visit Primary Care at [address] [phone] Heydi Garcia, CHERIE [address] [place] [address] [place]IC[place], [place] [phone] Health Maintenance Due Date Last Done Comments [...] Left (09/13/2024 8:40 AM EST) WORKSTATION ID [id number] RAD Anatomical Region Laterality Modality Breast Left [...] who have questions please contact the health urgent care physician that requested your imaging first. ? [address], [place] ??[address] Narrative 09/21/2024 3:33 PM EST EXAMINATION: MAMMO [...] External NON-REACTIVE 09/27/2008 Historical Provider EXTERNAL LAB EHMA DEJESUS from Last 3 Months or Most Recently Relevant to Health Maintenance Care Teams Digital Solution Architect Relationship Specialty Start Date End Date Heydi Garcia APRN [address] [place] [id number] PCP - General Family Medicine 08/07/24
== END ==
LOC: HO.CARD 12:54
PROVIDERS: PCP Family Medicine; Visit Provider Internal Medicine Cardiovascular Disease
DX: I49.3 Ventricular premature depolarization (principal)
CPT/HCPCS: 93242; 93306

== ENCOUNTER → 2024-10-22 12:58 | Outpatient (BNV) | payer OTHER, SELFPAY | PROVIDERS: PCP Family Medicine; Visit Provider Internal Medicine Cardiovascular Disease | DX: I35.1 Nonrheumatic aortic (valve) insufficiency (principal); I36.1 Nonrheumatic tricuspid (valve) insufficiency; I51.7 Cardiomegaly | CPT/HCPCS: 93306 ==

== ENCOUNTER → 2024-11-22 10:47 | Outpatient (REF) | payer OTHER, SELFPAY ==
--- NOTE | 2024-11-22 10:49 | CA_ITS ---
Acquisition Time: 2024-11-22 11:00:44 Total Exercise Time: 00:05:53 Test Indications: PVC'S,Palpitations Medications: METOPROLOL Protocol: JB Max HR: 157 BPM 96% of Pred: 162 BPM Max BP: 198/84 mmHG Max Work Load: 7.0 METS Exercise stress test with exercise 5 mins 53 secs of Jb Protocol, achieving 92% MPHR, with reports of mild SOB, no chest pain, with isolated PACs, frequent PVCs including bigeminy, trimgeminy and couplets, with normotensive response to exercise. Without EKG changes meeting criteria for ischemia, nonspecific ST waves ta baseline. In recovery, breathing returned to baseline. Echo images ontained by tech at rest and post peak exercise. Defnity contrast utilized. Test reviewed with Dr. Chowdary. Referred By: Shree Hsu Electronically Signed By: Shree Hsu
--- OUTSIDE RECORDS SUMMARY | 2024-11-22 11:58 | XMS_ITS | Clinical Summary ---
Author Organization Formerly [facility] [place] [address] Care Team Providers Care Hyperion Analyst Name Role Phone Heydi Garcia APRN Primary Care Provider +1- [phone] Encounters Date Type Department Care Team Description 09/21/2024 Abstract Primary Care at [address] [phone] Heydi Garcia APRN 09/20/2024 Telephone Primary Care at [address] [phone] Tray Rodriges Count Includes [facility] Care 09/13/2024 8:29 AM EST - 09/13/2024 11:59 PM EST Hospital Encounter Mammography at [address] [phone] Chely Manzanares MD Encounter for screening mammogram for malignant neoplasm of breast Discharge Disposition: Home 09/13/2024 Transcribe Orders Cardiology at [address] [phone] Chely Manzanares MD Cardiac arrhythmia, unspecified cardiac arrhythmia type 09/13/2024 Travel from Last 3 Months Immunizations Name Administration Dates Next Due Covid-19 Bivalent (Moderna S pikevax) 6mo+ (Age based Dosage) ([id number]) 05/28/2022 Hepatitis B Pediatric/Adoles cant (Engerix-B, Recombivax) 12/13/2022,11/15/2022 Tdap (Adacel, Boostrix) 07/02/2021 Social History Tobacco Use Types Packs/Day Years Used Date Smoking Tobacco: Never Assessed Sex and Gender Information Value Date Recorded Sex Assigned at Not on file Gender Identity Not on file Sexual Orientation Not on file Plan of Treatment Upcoming Encounters Date Type Department Care Team ([facility] Contact Info) Description 12/07/2024 3:25 PM EDT Office Visit Primary Care at [address] [phone] Garcia Heydi Ivette, PLATE SLITTER AND INSPECTOR [address] [facility] [place] [address] Health Maintenance Due Date Last Done Comments CT Colonography 1965 Colonoscopy 1965 Colorectal Cancer Screening 1965 FIT DNA 1965 FIT 1965 Sigmoidoscopy (10 year) with FIT yearly 1965 Sigmoidoscopy 1965 Hepatitis C Screening 01/01/1984 Hepatitis B vaccine (0-59 yr s) and Risk (1) 1984 12/13/2022, 11/15/2022 HPV test 01/01/1996 Breast Cancer Share Decision [...] Left (09/13/2024 8:40 AM EST) WORKSTATION ID [id number] RAD Anatomical Region Laterality Modality Breast Left [...] who have questions please contact the health medicare insurance specialist that requested your imaging first. ? [employer] [address] [place], [place] ??[address] Narrative 09/21/2024 3:33 PM EST EXAMINATION: MAMMO [...] - External NON-REACTIVE 09/27/2008 Historical Provider MD [facility] from Last 3 Months or Most Recently Relevant to Health Maintenance Care Teams Hyperion Analyst Relationship Specialty Start Date End Date Heydi Garcia APRN [address] [place] [id number] PCP - General Family Medicine 08/07/24
== END ==
LOC: HO.CARD 10:47
PROVIDERS: PCP Family Medicine
DX: R94.39 Abnormal result of other cardiovascular function study (principal); I49.3 Ventricular premature depolarization; R00.2 Palpitations
CPT/HCPCS: 93350; Q9957

== ENCOUNTER → 2024-11-22 10:49 | Outpatient (BNV) | payer OTHER, SELFPAY | PROVIDERS: PCP Family Medicine | DX: R94.31 Abnormal electrocardiogram [ECG] [EKG] (principal); I49.1 Atrial premature depolarization; I49.3 Ventricular premature depolarization | CPT/HCPCS: 93016; 93018; 93350; 93352 ==

== ENCOUNTER 2024-11-30 09:26 | Outpatient (AMB) | payer OTHER, SELFPAY ==
[2024-11-30 09:38] VITALS: BP 124/66; PULSE 72; BMI 25.4
--- NOTE | 2024-11-30 09:38 | A.OFFVIS_ITS ---
Vital Signs 11/30/24 09:38 Height 5 ft 4 in Weight 147 lb 11.355 oz BMI 25.4 BP 124/66 Blood Pressure Location Lt brachial Position Sitting Pulse 72 Pulse Source Pulse Oximeter Intake Visit Reasons: 4-6 wk follow up Pets [employer] Pet Supplies Salesperson Required: No Accompanied by: Self / Same As Patient Allergies No Known Allergies Allergy (Verified 10/05/24 08:25) Medication List - Last Reconciled 11/30/24 by Graciela Anderson NP-C metoprolol succinate ER (Toprol XL) 50 mg PO DAILY HPI HPI 4-6 wk follow up: Details: Lindsay is a 58 year old female with no significant past medical history who was recently found to have frequent PVCs. She was put on metoprolol and underwent cardiac testing including echocardiogram, stress test and repeat Holter monitor and now presents for follow-up. Today she reports that she will feel an occasional abnormal be in her chest. She is not bothered by frequent heart palpitations. She has no concerning symptoms to report. She denies chest discomfort, shortness of breath, lightheadedness. She has good activity tolerance. She is compliant with her metoprolol. She reduced her caffeine intake and reports only an occasional piece of chocolate. PFSH Surgical History Hx of oral surgery Hx of knee surgery Family History Father Cancer Mother No problems noted. Social History Alcohol intake: current Alcohol intake frequency: holidays/special occasions only Patient Tobacco Use Status: Never used Tobacco Review of Systems Const All systems reviewed & are unremarkable except as noted in HPI and below Denies chills, Denies fatigue, Denies fever(s), Denies weight gain and Denies weight loss ENT Denies dizziness Card Details: occasional heart palpitations Denies chest pain, Denies leg edema, Denies lightheadedness, Denies palpitations, Denies dyspnea on exertion, Denies orthopnea and Denies other Resp Denies cough and Denies dyspnea on exertion GI Denies hematochezia and Denies change in stool character Musc Denies abnormal gait, Denies muscle weakness, Denies numbness, Denies radiating pain into limb and Denies tingling Neuro Denies abnormal gait, Denies dizziness, Denies numbness and Denies tingling Endo Denies fatigue and Denies palpitations Physical Exam Vital Signs: Last Vital Signs Pulse 72 11/30/24 09:38 BP 124/66 11/30/24 09:38 BMI result Body Mass Index 25.4 Const General: cooperative, healthy appearing, comfortable and no acute distress Orientation/consciousness: patient oriented x3 Neck Neck: Yes normal visual inspection and Yes no JVD Resp Effort & Inspection: normal respiratory effort Auscultation: clear to auscultation bilaterally, no rales, no rhonchi and no wheezes Cardio Rate: regular rate Rhythm: regular rhythm Heart sounds: S1 normal heart sound present, S2 normal heart sound present, no gallops, no murmurs and no rubs Neuro General: patient oriented x3 Extrem General: Yes normal to inspection and No no pedal edema Psych Appearance: grossly normal Mental Status: mental status grossly normal Speech and movement: Normal speech and movement present Assessment & Plan Assessment & Plan (1) PVC (premature ventricular contraction): Code(s): I49.3 - Ventricular premature depolarization Category: Medical Plan: Newer finding of frequent PVCs. A Holter monitor had shown PVC burden 15%. She was put on metoprolol XL 50 mg daily and a repeat Holter monitor done 10/22/2024 showed sinus rhythm with average heart rate 71, ventricular ectopy burden 9%, evidence of couplets, triplets, bigeminy, trigeminy with longest run 6 beats. Echocardiogram done 10/22/2024 showed EF 65-70%, mild aortic regurgitation, ascending aorta 4.1 cm. An exercise stress echo done 11/22/2024 showed exercise 6 minutes with frequent PVCs, no EKG changes of ischemia and no echo evidence of ischemia, diastolic dysfunction or pulmonary hypertension. Test results reviewed with her in detail. At this time will increase her metoprolol XL up to 75 mg daily. Reviewed ongoing avoidance of caffeinated beverages. Maintain good hydration and get adequate rest. Continue physical activity as tolerated. Cardiology follow-up in 4-5 months, sooner if needed. Will recheck Holter prior to that visit. (2) Ascending aorta dilation: Code(s): I77.810 - Thoracic aortic ectasia Category: Medical Plan: Recent echo shows ascending aorta 4.1 cm. Blood pressure is well controlled. We will continue to follow. (3) NSVT (nonsustained ventricular tachycardia): Code(s): I47.29 - Other ventricular tachycardia Category: Medical Plan: Brief episodes as above. Plan Time spent on chart review, documentation, interview and assessment Orders: Orders ECG 3 day holter monitor 04/18/25 I47.29 - Other ventricular tachycardia, I49.3 - Ventricular premature depolarization Medications: Changed From metoprolol succinate ER (Toprol XL) 50 mg PO DAILY 30 tabs 5RF To metoprolol succinate ER (Toprol XL) dose increased 75 mg (1.5 x 50 mg) PO DAILY 135 tabs 3RF 90 days Coding Level of Care Code Est Pt Level 4 (22227) Complex EM visit Add On G2211 Diagnoses PVC (premature ventricular contraction) I49.3 Ascending aorta dilation I77.810 NSVT (nonsustained ventricular tachycardia) I47.29 Time Spent (min) 28
--- OUTSIDE RECORDS SUMMARY | 2024-11-30 09:51 | XMS_ITS | Clinical Summary ---
Author Organization Formerly [facility] [place] [address] Care Team Providers Care Enterprise Services Manager Name Role Phone Heydi Garcia APRN Primary Care Provider [phone]- [phone] Encounters Date Type Department Care Team Description 09/21/2024 Abstract Primary Care at [address] [phone] Heydi Garcia APRN 09/20/2024 Telephone Primary Care at [address] [phone] Tray Rodriges [facility] Care 09/13/2024 8:29 AM EST - 09/13/2024 11:59 PM EST Hospital Encounter Mammography at [address] [phone] Chely Manzanares MD Encounter for screening mammogram for malignant neoplasm of breast Discharge Disposition: Home 09/13/2024 Transcribe Orders Cardiology at [address] [phone] Chely Manzanares MD Cardiac arrhythmia, unspecified cardiac arrhythmia type 09/13/2024 Travel from Last 3 Months Immunizations Name Administration Dates Next Due Covid-19 Bivalent (Moderna S pikevax) 6mo+ (Age based Dosage) ([id number]) 05/28/2022 Hepatitis B Pediatric/Adoles cant (Engerix-B, Recombivax) 12/13/2022,11/15/2022 Tdap (Adacel, Boostrix) 07/02/2021 Social History Tobacco Use Types Packs/Day Years Used Date Smoking Tobacco: Never Assessed Sex and Gender Information Value Date Recorded Sex Assigned at Not on file Gender Identity Not on file Sexual Orientation Not on file Plan of Treatment Upcoming Encounters Date Type Department Care Team ([facility] Contact Info) Description 12/07/2024 3:25 PM EDT Office Visit Primary Care at [address] [phone] Garcia Heydi Ivette, BOX SEALING MACHINE OPERATOR [address] [facility] [place] [address] Health Maintenance Due Date Last Done Comments [...] Left (09/13/2024 8:40 AM EST) WORKSTATION ID [id number] RAD Anatomical Region Laterality Modality Breast Left [...] who have questions please contact the health patient care specialist that requested your imaging first. ? Electronically signed by: JB LEACH MD, [facility] ([phone]), at 09/21/2024 3:33 PM [facility] [address] [place], [place] ??[address] Narrative 09/21/2024 3:33 PM EST EXAMINATION: MAMMO [...] Recently Relevant to Health Maintenance Care Teams Enterprise Services Manager Relationship Specialty Start Date End Date Heydi Garcia APRN [address] [place] [id number] PCP - General Family Medicine 08/07/24
== END 2024-11-30 10:28 | disposition home or self-care (01) ==
LOC: HO.HCS 09:26
PROVIDERS: PCP Family Medicine; Visit Provider Nurse Practitioner Family
DX: I49.3 Ventricular premature depolarization (principal); I77.810 Thoracic aortic ectasia; I47.29 Other ventricular tachycardia
CPT/HCPCS: 99214

== ENCOUNTER → 2024-11-30 09:26 | Outpatient (BNVA) | payer OTHER, SELFPAY | PROVIDERS: PCP Family Medicine; Visit Provider Nurse Practitioner Family ==

== ENCOUNTER → 2025-04-17 14:41 | Outpatient (REF) | payer OTHER, SELFPAY ==
--- NOTE | 2025-04-17 14:46 | HM_ITS ---
Conclusion: 1. Patient was monitored for total period of 3 days 2. Baseline was normal sinus rhythm with average heart of 73 beats per minute 3. No significant pauses noted 4. Frequent PACs noted without any sustained arrhythmias 5. No patient reported events MTDD
--- OUTSIDE RECORDS SUMMARY | 2025-04-17 16:02 | XMS_ITS | Clinical Summary ---
Author Organization [facility] [place] [address] Care Team Providers Care Liner Worker Name Role Phone Heydi Garcia APRN Primary Care Provider +1- [phone] Allergies No known active allergies Medications metoprolol succinate XL (Toprol-XL) 50 mg ER 24 hr tablet Take 50 mg by mouth daily. Active metoprolol succinate XL (Toprol-XL) 25 mg ER 24 hr tablet Take 25 mg by mouth daily. Active Active Problems Problem Noted Date Diagnosed Date PVC (premature ventricular contraction) 03/08/20 25 Elevated hemoglobin A1c 03/08/2025 Encounters Date Type Department Care Team Description 03/14/2025 Abstract Primary Care at [address] [phone] Heydi Garcia APRN 03/08/2025 4:15 PM EDT Office Visit Primary Care at [address] [phone] Heydi Garcia APRN PVC (premature ventricular contraction); Elevated hemoglobin A1c 03/08/2025 Legacy Encounter Primary Care at [address] [phone] Heydi Garcia APRN 03/08/2025 Travel from Last 3 Months Immunizations Immunization Administration Dates Next Due Covid-19 Bivalent (Moderna S pikevax) 6mo+ (Age based Dosage) ([id number]) 05/28/2022 Hepatitis B Pediatric/Adoles cant (Engerix-B, Recombivax) 12/13/2022,11/15/2022 Tdap (Adacel, Boostrix) 07/02/2021 Social History Tobacco Use Types Packs/Day Years Used Date Smoking Tobacco: Former Cigarettes Smokeless Tobacco: Never Tobacco Cessation:Counseling Given: Not Answered B1300 Health Literacy Answer Date Recor ded How often do you need to hav e someone help you when you read instructions, pamphlets, or other written material from your doctor or pharmacy? Never 12/06/2024 [facility] Utilities Answer Date Recorded In the past 12 months has th e fl3ur, gas, oil, or water [employer] threatened to shut off services in your home? No 12/06/2024 Overall Financial Resource Strain (CARDIA) Answe r Date Recorded How hard is it for you to pa y for the very basics like food, housing, medical care, and heating? Not very hard 12/06/2024 Exercise Vital Sign Answer Date Recorde d On average, how many days pe r week do you engage in moderate to strenuous exercise (like a brisk walk)? 7 days 12/06/2024 On average, how many minutes do you engage in exercise at this level? 60 min 12/06/2024 Hunger Vital Sign Answer Date Recorded Within the past 12 months, y ou worried that your food would run out before you got the money to buy more. Never true 12/07/19 25 Within the past 12 months, t he food you bought just didn't last and you didn't have money to get more. Never true 12/06/2024 PRAPARE - Transportation Answer Date Re corded In the past 12 months, has l ack of transportation kept you from medical appointments or from getting medications? No 11/20 In the past 12 months, has l ack of transportation kept you from meetings, work, or from getting things needed for daily living? No 12/06/2024 Housing Stability Vital Sign Answer Chacho e Recorded In the last 12 months, was t here a time when you were not able to pay the mortgage or rent on time? No 12/06/2024 In the past 12 months, how m any times have you moved where you were living? 1 12/06/2024 At any time in the past 12 m [facility], were you homeless or living in a half-way (including now)? No 12/06/2024 Education Answer Date Recorded What is the highest level of school you have completed or the highest degree you have received? Bachelor's degree (e.g., BA, AB, BS) 12/06/2024 Comments Unknown Sex and Gender Information Value Date Recorded Sex Assigned at Female 12/06/2024 4:16 PM EDT Legal Sex Female 6:37 AM EST Gender Identity Female 12/06/2024 4:16 PM EDT Sexual Orientation Straight 12/06/2024 4: 16 PM EDT Last Filed Vital Signs Vital Sign Reading Time Taken Comments Blood Pressure 132/68 03/08/2025 3:54 PM EDT Pulse 69 03/08/2025 3:54 PM EDT Temperature 36.2 C (97.1 F) 03/08/2025 3:54 PM EDT Respiratory Rate - - Oxygen Saturation 98% 03/08/2025 3:54 PM EDT Inhaled Oxygen Concentration - - Weight 66.2 kg (146 lb) 03/08/2025 3:54 PM EDT Height 162 cm (5' 3.78 ) 12/07/2024 3:21 PM EDT Body Mass Index 25.23 12/07/2024 3:21 PM EDT Plan of Treatment Upcoming Encounters Date Type Department Care Team (Late st Contact Info) Description 08/27/2025 8:20 AM EST Appointment Mammography at [address] [phone] Heydi Garcia APRN [address] [place] [address] 09/13/2025 4:15 PM EST Office Visit Primary Care at [address] [phone] Heydi Garcia APRN [address] [place] [address] Health Maintenance Due Date Last Done Comments CT Colonography 1965 FIT DNA 1965 FIT 1965 Sigmoidoscopy (10 year) with FIT yearly 1965 Sigmoidoscopy 1965 Hepatitis C Screening 01/01/1984 Hepatitis B vaccine (0-59 yr s) and Risk (1) 1984 12/13/2022, 11/15/2022 Breast Cancer Share Decision Needed 2005 Diabetes Screening (HgbA1C o r Glucose) 2005 Pneumoccocal Vaccine: 50+ (1 of 1 - PCV) 01/01/2016 Zoster vaccine (1 of 2) 01/01/2016 Advance Directive 2020 Influenza (Flu) vaccine (1 o f 1 - Influenza standard series) 04/22/2025 Breast Cancer screening 09/13/2026 09/13/2024 HPV test 01/29/2028 01/28/2023 (Repo rt in eDH), 08/13/2019 (Report in e[facility]) PAP Smear 01/29/2028 01/28/2023, 06/0 08/2021, 01/09/2021 Colonoscopy 03/04/2031 03/04/2021 Colorectal Cancer Screening 03/04/2031 Tetanus/Diphtheria/Pertussis Vaccines (2 - Td or Tdap) 07/02/2031 07/02/2021 HIV screen Completed 09/27/2008 Covid-19 Vaccine Completed 06/15/2024, 05/28/2022 Procedures Procedure Name Priority Date/Time Associated Diagnosis Comments SCAN DOC: COLONOSCOPY 03/04/2025 12:00 AM EDT MAMMO SCREENING CAD AND GREGG LEFT Routine 09/13/2024 8:40 AM EST Encounter for screening mammogram for malignant neoplasm of breast EXTERNAL PAP SMEAR RESULT PANEL Routine 01/28/2023 EXTERNAL COLONOSCOPY RESULT Routine 03/04/2021 EXTERNAL INFECTIOUS DISEASE LAB RESULTS Routine 09/27/2008 from Last 3 Months or Most Recently Relevant to Health Maintenance Results * Scan Doc: Colonoscopy (03/04/2025 12:00 AM EDT) Narrative 03/04/2025 12:00 AM EDT Ordered by an unspecified provider. us Scanning Provider MEDIA MGR SCAN EXT ORDR/RSLT F inal Result * Mammo Screening Cad and Gregg Left (09/13/2024 8:40 AM EST) WORKSTATION ID [id number] RAD Anatomical Region Laterality Modality Breast Left [...] participate in the care of this patient. If you are a health care provider and have any questions regarding this report, please contact the number below. For patients who have questions please contact the health director of critical care that requested your imaging first. [address] [address] Narrative 09/21/2024 3:33 PM EST EXAMINATION: MAMMO SCREENING CAD AND GREGG LEFT CLINICAL HISTORY: Diagnostic mammogram. TECHNIQUE: CC and MLO views were obtained of left breast. 3- D tomosynthesis images were also obtained. Computer aided detection was used. Additional views of the left breast were obtained utilizing spot compression and/or spot magnification in orthogonal projections. COMPARISON: 07/15/2023 and 07/13/2022 FINDINGS: The breasts are heterogeneously dense, which may obscure small masses. There are no suspicious microcalcifications, masses, or areas of distortion. There is no suspicious change compared with prior images. Chely Manzanares MD IMG MAMMO ORDERABLES Final Resul t * Pap Smear External Result Panel (01/28/2023) External PAP Smear NILM 01/28/2023 Historical Provider EXTERNAL LAB ORDERABLES F inal Result * Colonoscopy External Result (03/04/2021) External Colonoscopy Normal Colonoscopy Comment:see scanned records Historical Provider EXTERNAL GI PROCEDURE RES ULT Final Result * External Infectious Disease Lab Results (09/27/2008) Hep B Surface Ag - External NEGATIVE HIV-1/2 Ab /Ag - External NON-REACTIVE 09/27/2008 [facility] Provider EXTERNAL LAB ORDERABLES F inal Result from Last 3 Months or Most Recently Relevant to Health Maintenance Insurance Care Teams Liner Worker Relationship Specialty Start Date End Date Heydi Garcia APRN [address] [place] [address] PCP - General Family Medicine 08/07/24
--- OUTSIDE RECORDS SUMMARY | 2025-04-17 16:02 | XMS_ITS | Encounter Summary ---
Author Organization [facility] Address [address] [place] [address] Phone Care Team Providers Care Quick Mixer Operator Name Role Phone Marissa Sheffield SUPERVISOR INSTRUMENT REPAIR Unavailable [phone] Marissa Sheffield SUPERVISOR INSTRUMENT REPAIR Primary Care Provider Encounter Details Date Type Department Care Team (Late st Contact Info) Description 02/15/2023 Transcribe Orders Virtual Department [address] [place] [address] Larissa Drake, VIVEK [address] [place] [phone] Right lower quadrant abdominal tenderness, rebound tenderness presence not specified (Primary Dx) Social History Tobacco Use Types Packs/Day Years Used Date Smoking Tobacco: Never Smokeless Tobacco: Never Alcohol Use Standard Drinks/Week Comments Yes 0 (1 standard drink = 0.6 oz pur e alcohol) 4-5 drinks in a week Education Answer Date Recorded Are you interested in more education? Not on shaista e 12/17/2022 Are you concerned about learning? Not on file 12/17/2022 No 12/17/2022 No 12/17/2022 Digital Access Answer Date Recorded No 01/15/2023 No 01/15/2023 Reliable internet access at home? Not on file 01/15/2023 Device with a working camera? Not on file Comments No Sex and Gender Information Value Date Recorded Sex Assigned at Not on file Legal Sex Female 9:40 PM EDT Gender Identity Not on file Sexual Orientation Not on file documented as of this encounter Plan of Treatment Not on file documented as of this encounter Results * US PELVIS TRANSABDOMINAL PLUS TRANSVAGINAL (03/09/2023 2:07 PM EDT) Anatomical Region Laterality Modality Pelvis, Uterus/Adnexa Ultrasound 03/16/2023 11:2 8 AM EDT Impressions 03/16/2023 1:13 PM EDT No abnormalities on pelvic ultrasound. Narrative 03/16/2023 1:13 PM EDT US PELVIS TRANSABDOMINAL PLUS TRANSVAGINAL HISTORY: 57-year-old postmenopausal female presenting with right lower quadrant tenderness on physical exam., Status post myomectomy for uterine fibroids. TECHNIQUE: Pelvic Ultrasound Transabdominal performed for global imaging of the pelvis. Pelvic Ultrasound Transvaginal performed for detailed imaging of the endometrium and/or adnexa. COMPARISON: None. FINDINGS: Uterus: Size: 6.0 cm x 2.8 cm x 1.7 cm. Orientation: anteverted Myometrium: No masses demonstrated. Endometrium: Normal. Endometrial stripe thickness: 1 mm. Right adnexa: Ovary: Likely visualization of a small right ovary measuring 1.5 cm x 1.1 cm x 0.9 cm. No evidence of adnexal masses. Left adnexa: Ovary: The left ovary is not visualized. No evidence of left adnexal masses. Free fluid: No significant free fluid. Procedure Note Brown Pollard MD - 03/16/2023 US PELVIS TRANSABDOMINAL PLUS TRANSVAGINAL HISTORY: 57-year-old postmenopausal female presenting with right lowerquadrant tenderness on physical exam., Status post myomectomy for uterinefibroids. TECHNIQUE: Pelvic Ultrasound Transabdominal performed for global imagingof the pelvis. Pelvic Ultrasound Transvaginal performed for detailedimaging of the endometrium and/or adnexa. COMPARISON: None. FINDINGS: Uterus: Size: 6.0 cm x 2.8 cm x 1.7 cm. Orientation: anteverted Myometrium: No masses demonstrated. Endometrium: Normal. Endometrial stripe thickness: 1 mm. Right adnexa: Ovary: Likely visualization of a small right ovary measuring 1.5 cm x 1.1 cm x0.9 cm. No evidence of adnexal masses. Left adnexa: Ovary: The left ovary is not visualized. No evidence of left adnexal masses. Free fluid: No significant free fluid. IMPRESSION: No abnormalities on pelvic ultrasound. us Laisa-Sheili Drake CORN SHELLER OPERATOR IMG US PELVIS Final Re sult documented in this encounter Visit Diagnoses Diagnosis Right lower quadrant abdominal tenderness, rebound tenderness presence not specified- Primary Right lower quadrant abdominal tenderness, rebound tenderness presence not specified documented in this encounter Care Teams Quick Mixer Operator Relationship Specialty Start Date End Date Marissa Sheffield NP [address] [place] [address] PCP - General 08/25/17 Marissa Sheffield NP [address] [place] [address] Historical LMR Provider 06/08/17 documented as of this encounter Additional Source Comments The information contained in this document represents components of the legal health record. It is not the complete legal health record.[facility]
--- OUTSIDE RECORDS SUMMARY | 2025-04-17 16:02 | XMS_ITS | Encounter Summary ---
Author Organization [facility] Address One [facility] [place] [address] Care Team Providers Care Plateman Name Role Phone Heydi Garcia APRN Primary Care Provider [phone] Encounter Details Date Type Department Care Team ([facility] st Contact Info) Description 03/08/2025 Legacy Encounter Primary Care at [address] [address] Heydi Garcia APRN [address] [place] [address] Social History Tobacco Use Types Packs/Day Years Used Date Smoking Tobacco: Former Cigarettes Smokeless Tobacco: Never B1300 Health Literacy Answer Date Recor ded How often do you need to hav e someone help you when you read instructions, pamphlets, or other written material from your doctor or pharmacy? Never 12/06/2024 [facility] Utilities Answer Date Recorded In the past 12 months has [facility] [employer], gas, oil, or water [employer] threatened to shut off services in your [...] any time in the past 12 m [facility], were you homeless or living in a snf (including now)? No 12/06/2024 Education Answer Date [...] Orientation Straight 12/06/2024 4: 16 PM EDT documented as of this encounter Plan of Treatment Upcoming Encounters Date Type Department Care Team (Late st Contact Info) Description 08/27/2025 8:20 AM EST Appointment Mammography at [address] [address] Heydi Garcia APRN [address] [place] [address] FAMILY [facility] [place], [place] [id number] 09/13/2025 4:15 PM EST Office Visit Primary Care at [address] [address] Heydi Garcia APRN [address] [place] [address] documented as of this encounter Visit Diagnoses Not on filedocumented in this encounter Care Teams Plateman Relationship Specialty Start Date End Date Heydi Garcia APRN [address] [place] [address] PCP - General Family Medicine 08/07/24 documented as of this encounter
--- OUTSIDE RECORDS SUMMARY | 2025-04-17 16:02 | XMS_ITS | Encounter Summary ---
Author Organization [facility] Address [address] [facility] [address] [place] [address] Phone Care Team Providers Care Sprayer Leather Name Role Phone Marissa Sheffield COMMUNITY ARTIST Unavailable [phone] Go Marie MD Unavailable Christina Chang COMMUNITY ARTIST Unavailable Pooja Stewart COMMUNITY ARTIST Unavailable Lindsay Mast MD Unavailable [phone] Nasim Espinoza MD Unavailable [phone] Marissa Sheffield COMMUNITY ARTIST Primary Care Provider Encounter Details Date Type Department Care Team (Late st Contact Info) Description 10/16/2018 Procedure Pass OR Admitting Dept - Virtual Department [address] [place] [address] Social History Tobacco Use Types Packs/Day Years Used Date Smoking Tobacco: Never Smokeless Tobacco: Never Alcohol Use Standard Drinks/Week Comments Yes 0 (1 standard drink = 0.6 oz pur e alcohol) 4-5 drinks in a week Comments No Sex and Gender Information Value Date Recorded Sex Assigned at Not on file Legal Sex Female 9:40 PM EDT Gender Identity Not on file Sexual Orientation Not on file documented as of this encounter Plan of Treatment Not on file documented as of this encounter Visit Diagnoses Not on filedocumented in this encounter Care Teams Sprayer Leather Relationship Specialty Start Date End Date Marissa Sheffield, COMMUNITY ARTIST [address] [place] [address] PCP - General 08/25/17 Marissa Sheffield COMMUNITY ARTIST [address] [place] [address] Historical LMR Provider 06/08/17 Go Marie MD [address] [place] [address] Historical LMR Provider 06/08/17 Christina Chang NP [facility] [place] [address] Historical LMR Provider 06/08/17 2 Pooja Stewart NP [address] [place] [address] Historical LMR Provider 06/08/17 2 Lindsay Mast MD [address] [place] [address] Historical LMR Provider 06/08/17 2 Nasim Espinoza MD [address] [place] [address] Historical LMR Provider 06/08/17 2 documented as of this encounter Additional Source Comments The information contained in this document represents components of the legal health record. It is not the complete legal health record.[facility]
--- OUTSIDE RECORDS SUMMARY | 2025-04-17 16:02 | XMS_ITS | Clinical Summary ---
Author Organization [facility] Address [address] [place] [address] Phone Care Team Providers Care Movie Extra Name Role Phone Marissa Sheffield TAX MAP TECHNICIAN Unavailable [phone] Marissa Sheffield TAX MAP TECHNICIAN Primary Care Provider Allergies No known active allergies Medications ibuprofen (ADVIL,MOTRIN) 200 MG tablet Take 1 tablet by mouth every 6 (six) hours as needed. 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 02/19/2018 Overview (03/29/2018): NIL HPV + 2015 and 2017; colpo benign but unsatisfactory Resolved Problems Problem Noted Date Diagnosed Date Resolved Date Cervical polyp 04/01/2018 Assessment & Plan (03/29/2018 9:20 AM EDT): excised Family History Medical History Relation Comments Brain cancer Brother Liver cancer Father Pancreatic cancer Father Emphysema Maternal Grandfather Lung cancer Maternal Grandmother Dementia Mother Cancer Paternal Grandfather No Known Problems Paternal Grandmother Lupus Sister Relation Status Comments Brother Father Maternal Grandfather Maternal Grandmother Mother Alive Paternal Grandfather Paternal Grandmother Sister Alive Social History Tobacco Use Types Packs/Day Years [...] on file Sexual Orientation Not on file Last Filed Vital Signs Vital Sign Reading Time Taken Comments Blood Pressure 120/74 03/29/2018 8:53 AM EDT Pulse 80 01/28/2016 9:29 AM EDT Temperature - - Respiratory Rate - - Oxygen Saturation - - Inhaled Oxygen Concentration - - Weight 68.1 kg (150 lb 2.1 oz) 04/14/2018 2:51 P M EDT Height 162.6 cm (5' 4.02 ) 04/14/2018 2:51 PM ED T Body Mass Index 25.76 04/14/2018 2:51 PM EDT Plan of Treatment Health Maintenance Due Date Last Done Comments LIPID PANEL 1965 DEPRESSION SCREENING 1977 HEPATITIS C SCREENING 01/01/1984 HIV ONE-TIME SCREENING (18-6 5 YEARS) 01/01/1984 MAMMOGRAM 2005 COLOGUARD 2010 COLONOSCOPY 2010 COLORECTAL CANCER SCREENING 2010 FIT TEST 2010 FOBT 2010 SIGMOIDOSCOPY 2010 VIRTUAL COLONOSCOPY 2010 PNEUMOCOCCAL VACCINES (50+ years) (1 of 1 - PCV) 01/01/2016 ZOSTER VACCINES (1 of 2) 01/01/2016 PAP SMEAR 08/13/2022 08/13/2019 COVID-19 VACCINE (3 - 2023-2 5 season) 2024 12/11/2020, 11/20/2020 Adult Td,Tdap Booster 12/29/2025 12/30/2015 SMOKING STATUS SCREENING (On ce After 26 Yrs) Completed 04/14/2018 HEPATITIS A VACCINES Aged Out No long er eligible based on patient's age to complete this topic HIB VACCINES Aged Out No longer eligi ble based on patient's age to complete this topic MENINGOCOCCAL VACCINES (ACWY) Aged Out No longer eligible based on patient's age to complete this topic MENINGOCOCCAL VACCINES (B) Aged Out N o longer eligible based on patient's age to complete this topic Medical Devices Not on file Procedures Procedure Name Priority Date/Time Associated Diagnosis Comments PAP SMEAR FOR RESULT ENTRY ONLY Routine 08/13/2019 from Last 3 Months or Most Recently Relevant to Health Maintenance Results * PAP SMEAR FOR RESULT ENTRY ONLY (08/13/2019) Marissa Sheffield NP HEALTH MAINTENANCE Ilene l Result from Last 3 Months or Most Recently Relevant to Health Maintenance [facility] POS EPO [facility] E[facility] Care Teams Movie Extra Relationship Specialty Start Date End Date Marissa Sheffield NP [address] [place] [address] PCP - General 08/25/17 Marissa Sheffield NP [address] [place] [address] Historical LMR Provider 06/08/17 Additional Source Comments The information contained in this document represents components of the legal health record. It is not the complete legal health record.[facility]
== END ==
LOC: HO.CARD 14:41
PROVIDERS: Visit Provider Nurse Practitioner Family
DX: I49.3 Ventricular premature depolarization (principal); I47.29 Other ventricular tachycardia
CPT/HCPCS: 93242

== ENCOUNTER → 2025-04-17 14:46 | Outpatient (BNV) | payer OTHER, SELFPAY | PROVIDERS: Visit Provider Internal Medicine Cardiovascular Disease | DX: I49.1 Atrial premature depolarization (principal) | CPT/HCPCS: 93244 ==

== ENCOUNTER 2025-05-14 09:08 | Outpatient (AMB) | payer OTHER, SELFPAY ==
--- NOTE | 2025-05-14 09:11 | A.OFFVIS_ITS ---
Vital Signs 05/14/25 09:12 Height 5 ft 4 in Weight 151 lb 3.794 oz BMI 26.0 BP 120/60 Blood Pressure Location Lt brachial Position Sitting Pulse 63 Pulse Source Pulse Oximeter Intake Visit Reasons: 4-5m follow up Accompanied by: Self / Same As Patient Allergies No Known Allergies Allergy (Verified 05/14/25 09:17) Medication List - Last Reconciled 05/14/25 by Graciela Anderson, FINGERPRINT CLASSIFIER-C metoprolol succinate ER (Toprol XL) 75 mg (1.5 x 50 mg) PO DAILY 90 days HPI HPI 4-5m follow up: Details: Lindsay is a 59 year old female with past medical history of frequent PVCs and mildly dilated ascending aorta who presents for follow-up. Today she reports that she has been feeling well with no concerning symptoms. She does not notice heart palpitations. She denies chest discomfort, shortness of breath, lightheadedness. She has good activity tolerance. She is compliant with her metoprolol. She reduced her caffeine intake and reports only an occasional piece of chocolate. PFSH Surgical History Hx of oral surgery Hx of knee surgery Family History Father Cancer Mother No problems noted. Social History Alcohol intake: current Alcohol intake frequency: holidays/special occasions only Patient Tobacco Use Status: Never used Tobacco Review of Systems Const All systems reviewed & are unremarkable except as noted in HPI and below Denies daytime sleepiness, Denies difficulty sleeping, Denies snoring, Denies stops breathing during sleep and Denies weakness Card Denies chest pain, Denies rapid heart rate, Denies irregular heart rhythm, Denies claudication, Denies leg edema, Denies lightheadedness, Denies palpitations, Denies dyspnea, Denies dyspnea on exertion, Denies orthopnea, Denies paroxysmal nocturnal dyspnea and Denies slow heart rate Resp Denies cough, Denies dyspnea, Denies dyspnea on exertion and Denies snoring GI Reports no additional complaints, Denies hematochezia, Denies change in stool character and Denies dyspepsia Musc Denies abnormal gait, Denies muscle weakness and Denies numbness Neuro Denies abnormal gait, Denies numbness and Denies weakness Endo Denies palpitations Physical Exam Vital Signs: Last Vital Signs Pulse 63 05/14/25 09:12 BP 120/60 05/14/25 09:12 BMI result Body Mass Index 26.0 Const General: cooperative, healthy appearing, comfortable and no acute distress Orientation/consciousness: patient oriented x3 Neck Neck: Yes normal visual inspection and Yes no JVD Resp Effort & Inspection: normal respiratory effort Auscultation: clear to auscultation bilaterally, no rales, no rhonchi and no wheezes Cardio Rate: regular rate Rhythm: regular rhythm Heart sounds: S1 normal heart sound present, S2 normal heart sound present, no gallops, no murmurs and no rubs Neuro General: patient oriented x3 Extrem General: Yes normal to inspection and No no pedal edema Psych Appearance: grossly normal Mental Status: mental status grossly normal Speech and movement: Normal speech and movement present Assessment & Plan Assessment & Plan (1) PVC (premature ventricular contraction): Code(s): I49.3 - Ventricular premature depolarization Category: Medical Plan: Prior Holter monitor had shown PVC burden 15%. She was put on metoprolol and repeat Holter monitor done 10/22/2024 showed ventricular ectopy burden 9%, evidence of couplets, triplets, bigeminy, trigeminy with longest run 6 beats. Echocardiogram done 10/22/2024 showed EF 65-70%, mild aortic regurgitation, ascending aorta 4.1 cm. An exercise stress echo done 11/22/2024 showed exercise 6 minutes with frequent PVCs, no EKG changes of ischemia and no echo evidence of ischemia, diastolic dysfunction or pulmonary hypertension. On last visit her metoprolol XL was increased to 75 mg daily. Repeat Holter prior to this visit, 04/17/2025 for 3 days shows sinus rhythm with ventricular ectopy burden 6%. Currently asymptomatic. Reviewed ongoing avoidance of caffeinated beverages, Maintain good hydration and get adequate rest. Continue physical activity as tolerated. Echo prior to next visit. Cardiology follow-up 6 months, sooner if needed.. (2) Ascending aorta dilation: Code(s): I77.810 - Thoracic aortic ectasia Category: Medical Plan: Last echo shows ascending aorta 4.1 cm. Blood pressure is well controlled. Echo prior to next visit (3) NSVT (nonsustained ventricular tachycardia): Code(s): I47.29 - Other ventricular tachycardia Category: Medical Plan: Brief episodes as above. Plan I discussed with the patient the current status of her PVCs, noting the reduction in frequency due to metoprolol, and confirmed that her heart rate is within a safe range. We agreed to maintain the current medication dosage and monitor her heart function with an echocardiogram before the next visit. Regarding the dilation of her ascending aorta, I explained the importance of monitoring its size with serial echocardiograms and maintaining blood pressure control. We also discussed the potential need for a CT scan if significant growth is observed. I advised her to continue her active lifestyle and to proceed with her planned vaccinations and oral surgery, with precautions regarding epinephrine use. Orders: Orders CA echo transthoracic complete 11/04/25 I49.3 - Ventricular premature depolarization, I77.810 - Thoracic aortic ectasia Patient Instructions: - Continue taking metoprolol as prescribed. - Schedule and complete an echocardiogram before the next visit. - Maintain blood pressure control through lifestyle and medication. Patient was informed and verbally consented to the use of an ambient scribe for clinic note documentation during this visit. Visit time spent on chart review, interview, assessment, orders, documentation. Coding Level of Care Code Est Pt Level 4 (28928) Complex EM visit Add On G2211 Diagnoses PVC (premature ventricular contraction) I49.3 Ascending aorta dilation I77.810 NSVT (nonsustained ventricular tachycardia) I47.29 Time Spent (min) 28
[2025-05-14 09:12] VITALS: BP 120/60; PULSE 63; BMI 26.0
--- OUTSIDE RECORDS SUMMARY | 2025-05-14 10:36 | XMS_ITS | Clinical Summary ---
Author Organization [facility] [place] [address] Care Team Providers Care Special Diet Cook Name Role Phone Heydi Garcia APRN Primary Care Provider [phone] Allergies No known active allergies Medications metoprolol [...] Team Description 03/14/2025 Abstract Primary Care at [address] [address] Heydi Garcia APRN 03/08/2025 4:15 PM EDT Office Visit Primary Care at [address] [phone] Heydi Garcia APRN PVC (premature ventricular contraction); Elevated hemoglobin A1c 03/08/2025 Legacy Encounter Primary Care at [address] [phone] Heydi Garcia APRN 03/08/2025 Travel from Last 3 Months Immunizations Immunization Administration Dates Next Due Covid-19 Bivalent (Moderna S pikevax) 6mo+ (Age based Dosage) ([id number]) 05/28/2022 Hepatitis B Pediatric/Adoles cant (Engerix-B, Recombivax) [...] 12/06/2024 [facility] Utilities Answer Date Recorded In the past 12 months has th e [employer], gas, oil, or water [employer] threatened to shut off services in your [...] any time in the past 12 m [facility], were you homeless or living in a residential (including now)? No 12/06/2024 Education Answer Date [...] 08/27/2025 8:20 AM EST Appointment Mammography at [address] [phone] Heydi Garcia APRN [address] [place] [address] 09/13/2025 4:15 PM EST Office Visit Primary Care at [address] [address] Heydi Garcia APRN [address] [place] [address] Health Maintenance Due Date Last Done Comments CT Colonography 1965 FIT DNA 1965 FIT 1965 Sigmoidoscopy (10 year) with FIT yearly 1965 Sigmoidoscopy 1965 Hepatitis C Screening 01/01/1984 Hepatitis B vaccine (0-59 yr s) and Risk (1) 1984 12/13/2022, 11/15/2022 Diabetes Screening (HgbA1C o r Glucose) 2000 Breast Cancer Share Decision Needed 2005 Pneumoccocal [...] Left (09/13/2024 8:40 AM EST) WORKSTATION ID [id number] RAD Anatomical Region Laterality Modality Breast Left [...] who have questions please contact the health lpn care manager that requested your imaging first. Electronically signed by: JB LEACH MD, [facility] ([phone]), at 09/21/2024 3:[address] [address] Narrative 09/21/2024 3:33 PM EST EXAMINATION: MAMMO [...] HIV-1/2 Ab /Ag - External NON-REACTIVE 09/27/2008 [facility] Provider EXTERNAL LAB ORDERABLES F inal Result from Last 3 Months or Most Recently Relevant to Health Maintenance Insurance Care Teams Special Diet Cook Relationship Specialty Start Date End Date Heydi Garcia APRN [address] [place] [address] PCP - General Family Medicine 08/07/24
== END 2025-05-14 09:48 | disposition home or self-care (01) ==
LOC: HO.HCS 09:09
PROVIDERS: PCP Family Medicine; Visit Provider Nurse Practitioner Family
DX: I49.3 Ventricular premature depolarization (principal); I77.810 Thoracic aortic ectasia; I47.29 Other ventricular tachycardia
CPT/HCPCS: 99214